=== PATIENT | female | born 1975 | race Asian ===

== ENCOUNTER 2019-02-09 11:03 | Emergency (ER) | payer OTHER ==
[2019-02-09 11:28] VITALS: BMI 24.0
--- NOTE | 2019-02-09 11:56 | PDOC ---
History of Present Illness - General Chief Complaint: Head/Neck problem Stated Complaint: NUMNESS AND TINGLING ON THE RT SIDE OF THE FACE Time Seen by Provider: 02/09/19 11:53 History Source: Patient Exam Limitations: No Limitations - History of Present Illness Initial Comments: 02/09/19 11:56 43yo woman with pmh htn presenting with crawling sensation of right mid / upper face since this morning. Pt reports she felt the sensation of something "crawling under [her] skin" on her cheek this morning. Sensation comes and goes , was not present at initial interview then came lasting several minutes. Started primarily in the right cheek but extended to behind right ear / forehead and top of head. Denies any prior similar symptoms. Denies any other symptoms (no pain, weakness, speech changes, confusion, etc.) Pt had "pinching" chest pain about 1 year ago and was prescribed PRN metoprolol which she hasn't required in several months - does report having "skipped beats" during a recent stress test. Denies palpitations, chest pain / discomfort, SOB, nausea, vomiting , or recent illnesses. KNDA Meds per chart NIH Stroke Scale - Last Known Well Date/Time & Onset Date Last Known Well: 02/09/19 Time Last Known Well: 09:45 - Initial Evaluation Level of consciousness: Alert Ask patient the month and their age: Answers both correctly Ask patient to open & close eyes; make fist and let go: Obeys both correctly Best gaze (horizontal eye movement): Normal Visual field testing: No visual field loss Facial paresis (Show teeth/raise eyebrows/close eyes tight): Normal symmetrical movement Motor Function: Left Arm: Normal Motor Function: Right Arm: Normal (extends arm 90 (or 45) degrees for 10 seconds without drift Motor Function: Left Leg: Normal (extends leg 30 degrees for 5 seconds without drift) Motor Function: Right Leg: Normal (extends leg 30 degrees for 5 seconds without drift) Limb Ataxia: No ataxia Sensory(Use pinprick test arms,legs,trunk,face/side to side): Normal Best language (Describe picture, name items, read sentences): No Aphasia Dysarthria (read several words): Normal articulation Extinction and Inattention: No abnormality - Total Score NIH Stroke Scale Score: 0 Past History - Travel Traveled outside of the country in the last 30 days: No Close contact w/someone who was outside of country & ill: No - Past Medical History Allergies/Adverse Reactions: Allergies Allergy/AdvReac Type Severity Reaction Status Date / Time No Known Allergies Allergy Verified 02/09/19 11:29 Home Medications: Ambulatory Orders NK [No Known Home Medication] 02/09/19 Anemia: Yes COPD: No HTN: Yes - Suicide/Smoking/Psychosocial Hx Smoking History: Never smoked Hx Alcohol Use: No Drug/Substance Use Hx: No Review of Systems - Review of Systems Able to Perform ROS?: Yes Is the patient limited Bengali proficient: No Constitutional: No: Chills, Diaphoresis, Fever, Weakness HEENTM: Yes: See HPI. No: Eye Pain, Tearing, Recent change in vision, Double Vision, Ear Discharge, Nose Pain, Hearing Loss, Throat Pain, Throat Swelling, Mouth Pain, Difficulty Swallowing Respiratory: No: Cough, Shortness of Breath, Wheezing Cardiac (ROS): No: Chest Pain, Irregular Heart Rate, Palpitations, Syncope, Chest Tightness ABD/GI: No: Abdominal Distended, Constipated, Diarrhea, Nausea, Vomiting : No: Burning, Dysuria, Discharge, Frequency Musculoskeletal: No: Back Pain, Muscle Weakness Integumentary: No: Bruising, Change in Hair/Nails, Pruritus, Rash Neurological: Yes: See HPI, Paresthesia. No: Headache, Numbness, Tingling, Weakness, Unsteady Gait All Other Systems: Reviewed and Negative *Physical Exam - Vital Signs Last Vital Signs Temp Pulse Resp BP Pulse Ox 98.3 F 63 16 147/83 100 02/09/19 11:26 02/09/19 11:26 02/09/19 11:02/09/19 11:02/09/19 11:26 - Physical Exam Comments: 02/09/19 12:54 Mildly hypertensive, AF, otherwise HDS Gen: WDWN woman, appears stated age, no acute distress HEENT: MMM, EOMI, TM normal - canal w/o lesions, normal morphologies, atraumatic , no facial pain, no rash, no erythema, no sinus tenderness CV: RRR, nl s1/s2, no murmurs / rubs / gallops Pulm: CTABL, normal WOB, speaking full sentences, no wheezes / rales / rhonchi Abd: soft, nontender, nondistended Ext: WWP, no clubbing cyanosis / edema Pulses: 2+ radial, PT Neuro: alert and oriented, MAEE, CN 2-12 intact, no numbness, NIHSS 0 ED Treatment Course - LABORATORY CBC & Chemistry Diagram: 02/09/19 12:50 02/09/19 12:50 Medical Decision Making - Medical Decision Making 02/09/19 12:58 43yo woman with PMH HTN presenting with intermittent "crawling" facial sensation for 2 hours. Concerning for r/o CVA/TIA, patient immediately taken to CT, negative head CT at 12:05, NIHSS zero at 12:10. Pt with trigeminal V2 distribution symptoms, reproducible with tapping on the trigeminal nerve. Concerning for some sort of compression vs less likely infection vs dental etiology. -NCHCT - negative on my review -CBC, CMP, PT/INR -EKG, Cardiac Profile, Cardiac monitoring -UA, Urine Preg 02/09/19 13:32 -CBC normal without leukocytosis or anemia -PT/INR within normal limits -UA with blood, pt on menstrual period, preg negative -Troponin pending -CMP pending -NCHCT official read pending 02/09/19 13:35 -CMP without electrolyte abnormalities, LFTs wnl -Troponin negative 02/09/19 14:32 -Head CT negative for acute intracranial process -ABCD2 score low risk, pt for discharge Dispo: home with neuro outpatient followup *DC/Admit/Observation/Transfer Diagnosis at time of Disposition: Trigeminal anesthesia - Discharge Dispostion Disposition: HOME Condition at time of disposition: Stable Decision to Admit order: No - Referrals Referrals: Ki Patel MD [Staff Physician] - - Patient Instructions Additional Instructions: You were seen and evaluated in the ED for an abnormal facial sensation. Please take anti-inflammatory medications (ibuprofen) as directed on bottle for symptoms. You have been given a referral for outpatient neurology followup. Please call them to arrange an appointment with in the next week. If you experience any new or concerning symptoms including but not limited to: new weakness, changes in speech, new numbness or tingling - please return to the nearest emergency department. - Post Discharge Activity
[2019-02-09] MEDS ORDERED: SODIUM CHLORIDE 1,000 ML IV SCH (12:30)
[2019-02-09 13:07] LABS: BASO % 0.9 % (0-2.0); EOS % 0.8 % (0-4.5); HEMATOCRIT 36.8 % (32.4-45.2); HEMOGLOBIN 12.4 GM/dL (10.7-15.3); LYMPH % 33.5 % (8-40); MCH 31.5 pg (25.7-33.7); MCHC 33.7 g/dl (32.0-36.0); MEAN CELL VOLUME 93.5 fl (80-96); MEAN PLT VOLUME 7.1 fl (7.5-11.1); MONO % 3.9 % (3.8-10.2); NEUT % 60.9 % (42.8-82.8); PLATELET COUNT 293 K/MM3 (134-434); RBC 3.93 M/mm3 (3.60-5.2); RDW 13.4 % (11.6-15.6); WHITE BLOOD COUNT 6.7 K/mm3 (4.0-10.0)
[2019-02-09 13:09] LABS: HYALINE CASTS 1 /lpf (0-8); PH,URINE 5.5 (5.0-8.0); URINE APPEARANCE CLEAR; URINE BILIRUBIN NEGATIVE (NEGATIVE); URINE COLOR YELLOW; URINE GLUCOSE (UA) NEGATIVE (NEGATIVE); URINE KETONE NEGATIVE (NEGATIVE); URINE LEUK ESTERASE NEGATIVE (NEGATIVE); URINE NITRITE NEGATIVE (NEGATIVE); URINE PROTEIN NEGATIVE (NEGATIVE); URINE RBC 1 /hpf (0-4); URINE UROBILINOGEN 0.2 mg/dL (0.2-1.0); URINE WBC 1 /hpf (0-5)
[2019-02-09 13:19] LABS: INR 1.04 (0.83-1.09); PROTHROMBIN TIME (PATIENT) 12.3 SEC (9.7-13.0)
[2019-02-09 13:33] LABS: BILIRUBIN,TOTAL 0.4 mg/dL (0.2-1); BLOOD UREA NITROGEN 17.3 mg/dL (7-18); CALCIUM 9.2 mg/dL (8.5-10.1); CREATININE 0.7 mg/dL (0.55-1.3); TOT PROT 7.8 g/dl (6.4-8.2)
[2019-02-09] MEDS ORDERED: ACETAMINOPHEN 1000 MG/100 ML VIAL (NON FORMULARY) IVPB ONE (13:39)
[2019-02-09] MEDS ORDERED: ACETAMINOPHEN INJECTION 100 ML IVPB ONE (13:44)
--- NOTE | 2019-02-09 15:04 | PDOC ---
Documentation entered by Dave Ruiz SCRIBE, acting as scribe for Rodo Knight MD. Rodo Knight MD: This documentation has been prepared by the Jsoeph meyer Xhesika, SCRIBE, under my direction and personally reviewed by me in its entirety. I confirm that the documentation accurately reflects all work, treatment, procedures, and medical decision making performed by me. Attending Attestation - Resident Resident Name: Woodrow Menendez - ED Attending Attestation I have performed the following: I have examined & evaluated the patient, The case was reviewed & discussed with the resident, I agree w/resident's findings & plan, Exceptions are as noted - HPI HPI: 02/09/19 14:28 The patient is a 43 year old female with a PMH of HTN who presents to the ED with intermittent R mid/ upper face tingling sensation radiating to her R ear and top of her head since 9:45AM. Patient states she endorses associated neck pain. Patient denies any arm or leg tingling/ numbness. Patient denies weakness , speech changes, or confusion. The patient denies chest pain, shortness of breath, headache and dizziness. Denies fever, chills, cough, nausea, vomiting, diarrhea and constipation. Denies dysuria, frequency, urgency and hematuria. Allergies:, NKDA Social Hx: Denies current smoking, drinking, or other substance usage. - Physicial Exam PE: 02/09/19 14:29 Vitals: Triage Vital signs reviewed General Appearance: no acute distress, well nourished well developed, Head: Atraumatic, normocephalic Eyes: Pupils equal reactive round, extraocular movement intact Ears: TM's normal bilaterally; Throat: Posterior oropharynx without erythema, mucous membranes moist, Neck: Supple;No Nuchal rigidity Chest Wall: Nontender Cardiac: Regular rate and rhythm, no murmurs, no rubs, no gallops, Lungs: Clear to auscultation bilateral, good air movement bilaterally, Abdomen: Soft, nondistended, normal bowel sounds, nontender to palpation Extremities: Full range of motion to all extremities, no cyanosis, clubbing, or edema Skin: Warm and dry, no rashes or lesions, no petechiae Neuro: AOX3; Cranial Nerves 2-12 grossly c intact, Strength intact to all extremities, Sensation intact to all extremities, gait normal Psych: normal mood, normal affect - Medical Decision Making 02/09/19 15:05 No weakness no numbness or tingling sensation over the V2 distribution of the trigeminal nerve on the right side of the patient's face. No ear involvement no tooth involvement otherwise nonfocal neurologic examination and otherwise healthy 43-year-old Likely irritation of the trigeminal nerve. Provided patient with neurology follow-up patient will return to ED for any severe worsening symptoms or for any concerns. Find his, need for follow-up and strict return instructions discussed with patient.
[2019-02-09 15:17] VITALS: BP 136/78; PULSE 82; TEMP 98.5
--- NOTE | 2019-02-10 11:17 | EKG ---
Test Reason : Blood Pressure : / mmHG Vent. Rate : 058 BPM Atrial Rate : 058 BPM P-R Int : 126 ms QRS Dur : 092 ms QT Int : 420 ms P-R-T Axes : 065 062 065 degrees QTc Int : 412 ms SINUS BRADYCARDIA OTHERWISE NORMAL ECG NO PREVIOUS ECGS AVAILABLE Confirmed by Deacon Stockton MD ([id number]) on 02/10/2019 11:17:27 AM Referred By: Confirmed By:Deacon Stockton MD
== END 2019-02-09 15:17 | disposition home or self-care (01) ==
LOC: JER 11:03
PROC: 3E033NZ Introduction of Analgesics, Hypnotics, Sedatives into Peripheral Vein, Percutaneous Approach (ICD-10-PCS; principal; 2019-02-09)
PROC: 3E0337Z Introduction of Electrolytic and Water Balance Substance into Peripheral Vein, Percutaneous Approach (ICD-10-PCS; 2019-02-09)
DX: G50.8 Other disorders of trigeminal nerve (principal); R20.0 Anesthesia of skin
CPT/HCPCS: 36415; 70450-TC; 80053; 81003; 82550; 84484; 85025; 85610; 93005; 93010; 96374; 99283-25; J0131; J7030

== ENCOUNTER 2019-05-11 15:31 | Emergency (ER) | payer OTHER ==
[2019-05-11 15:41] VITALS: BP 108/63; PULSE 86; TEMP 98.2; BMI 24.4
--- NOTE | 2019-05-11 15:42 | PDOC ---
Rapid Medical Evaluation Time Seen by Provider: 05/11/19 15:39 Medical Evaluation: Allergies Allergy/AdvReac Type Severity Reaction Status Date / Time No Known Allergies Allergy Verified 02/09/19 11:29 05/11/19 15:39 Pt presents for evluation after having a needle stick at work. She stuck her L thumb. She washed the area after the stick. Does not know the HIV status of the source patient Exam: NAD, prick to the L thumb pad Orders: Exposure labs Pt to proceed to the ER for further evaluation Discharge Disposition - Diagnosis Needle stick injury - Referrals - Patient Instructions - Post Discharge Activity
--- NOTE | 2019-05-11 18:06 | PDOC ---
Post Exposure HPI - General Chief Complaint: Blood/Body Fluid Exposure [facility]JR Stated Complaint: NEEDLE PRICK IN THUMB Time Seen by Provider: 05/11/19 15:39 History Source: Patient Exam Limitations: No Limitations - History of Present Illness Initial Comments: 05/11/19 18:05 43 year old female with medical history of HTN, childhood asthma and x 4 presents for needlestick. 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 Patient reports tetanus and hepatitis b vaccines are up to date but would like to have hiv testing and pep. 05/11/19 18:31 Timing: just prior to arrival Exposed Location: Left: Hand(s) Assessing Significant Risk PEP: Yes Blood, Yes Potentially Infectious Fluid Past History - Travel Traveled outside of the country in the last 30 days: No Close contact w/someone who was outside of country & ill: No - Past Medical History Allergies/Adverse Reactions: Allergies Allergy/AdvReac Type Severity Reaction Status Date / Time No Known Allergies Allergy Verified 02/09/19 11:29 Home Medications: Ambulatory Orders Olmesartan/Amlodipin/Hcthiazid [[id number] [id number] mg] 1 each PO DAILY 05/11/19 Anemia: Yes COPD: No HTN: Yes - Immunization History Immunization Up to Date: Yes - Psycho Social/Smoking Cessation Hx Smoking History: Never smoked Information on smoking cessation initiated: No Hx Alcohol Use: No Drug/Substance Use Hx: No General Medical PMHX - Other General PMHX Arthritis: No Glaucoma: No NH: No Review of Systems - Review of Systems Able to Perform ROS?: Yes Is the patient limited Montenegrin proficient: No Constitutional: No: Chills, Fever HEENTM: No: Nose Congestion, Throat Pain, Throat Swelling, Mouth Swelling Respiratory: No: Shortness of Breath, Wheezing Cardiac (ROS): No: Chest Pain, Lightheadedness, Palpitations ABD/GI: No: Poor Appetite, Poor Fluid Intake, Vomiting : No: Dysuria, Hematuria, Incontinence Integumentary: Yes: Other (needle stick to left thumb) Neurological: No: Numbness, Paresthesia *Physical Exam - Vital Signs Last Vital Signs Temp Pulse Resp BP Pulse Ox 98.2 F 86 20 108/63 98 05/11/19 15:38 05/11/19 15:38 05/11/19 15:38 05/11/19 15:38 05/11/19 15:38 - Physical Exam General Appearance: Yes: Nourished, Appropriately Dressed HEENT: positive: TMs Normal, Pharynx Normal Neck: positive: Supple. negative: Lymphadenopathy (R) Respiratory/Chest: positive: Lungs Clear Cardiovascular: positive: Regular Rhythm, Regular Rate Extremity: positive: Normal Capillary Refill Integumentary: positive: Other (needle stick to left thumb) Neurologic: positive: Fully Oriented, Alert Post Exposure - ED Protocol - Exposure Treatment Washing/Decontamination: Soap/Water Source Patient HIV Status:: Unknown Is PEP indicated?: Yes Prophylaxis for HIV discussed?: Yes Prophylaxis given?: Yes Drug(s) Information Sheets given:: Yes Baseline bloods drawn prophylaxis:(use *Exposure-Hosp Emp): Yes - Referrals Other Post Exposure pt. referral to PCP: Yes Medical Decision Making - Medical Decision Making 05/11/19 18:34 43 year old female with medical history of HTN, childhood asthma and x 4 presents for needlestick. 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 Patient reports tetanus and hepatitis b vaccines are up to date but would like to have hiv testing and pep. Blood exposure labs drawn pep given tetanus up to date Discharge - Discharge Information Problems reviewed: Yes Clinical Impression/Diagnosis: Needle stick injury Condition: Good Disposition: HOME - Admission No - Follow up/Referral Referrals: Aylin Galeas MD [Primary Care Provider] - (call for follow up appointment ) - Patient Discharge Instructions Patient Printed Discharge Instructions: How to Handle Body Fluid Exposure -- Healthcare Worker - Post Discharge Activity Work/Back to School Note: Back to Work
[2019-05-11] MEDS ORDERED: HIV POST EXPOSURE PROPHYLAXIS KIT NR ONE (18:35)
[2019-05-11] MEDS ORDERED: HIV POST EXPOSURE PROPHYLAXIS KIT PO ONE (18:46)
[2019-05-11 19:01] LABS: BASO % 1.1 % (0-2.0); EOS % 1.7 % (0-4.5); HEMATOCRIT 38.3 % (32.4-45.2); HEMOGLOBIN 12.8 GM/dL (10.7-15.3); LYMPH % 36.6 % (8-40); MCH 31.6 pg (25.7-33.7); MCHC 33.4 g/dl (32.0-36.0); MEAN CELL VOLUME 94.5 fl (80-96); MONO % 6.9 % (3.8-10.2); NEUT % 53.7 % (42.8-82.8); PLATELET COUNT 337 K/MM3 (134-434); RBC 4.06 M/mm3 (3.60-5.2); RDW 12.9 % (11.6-15.6); WHITE BLOOD COUNT 6.9 K/mm3 (4.0-10.0)
[2019-05-11 19:34] LABS: ALBUMIN 4.2 g/dl (3.4-5.0); BILIRUBIN,TOTAL 0.5 mg/dL (0.2-1); BLOOD UREA NITROGEN 17.3 mg/dL (7-18); CALCIUM 9.3 mg/dL (8.5-10.1); CREATININE 0.8 mg/dL (0.55-1.3); POTASSIUM 3.9 mmol/L (3.5-5.1); TOT PROT 8.2 g/dl (6.4-8.2)
== END 2019-05-11 19:28 | disposition home or self-care (01) ==
LOC: JERFT 15:31
DX: Z77.21 Contact with and (suspected) exposure to potentially hazardous body fluids (principal); S61.032A Puncture wound without foreign body of left thumb without damage to nail, initial encounter; W46.1XXA Contact with contaminated hypodermic needle, initial encounter; Y93.F9 Activity, other caregiving; Y92.89 Other specified places as the place of occurrence of the external cause; Y99.0 Civilian activity done for income or pay; I10 Essential (primary) hypertension; D64.9 Anemia, unspecified; J45.909 Unspecified asthma, uncomplicated
CPT/HCPCS: 36415; 80053; 85025; 86317; 86704; 86706; 86803; 87340; 87389; 99282-25

== ENCOUNTER 2021-02-07 14:20 | Emergency (ER) | payer BC, SELFPAY ==
[2021-02-07 14:32] VITALS: BP 133/82; PULSE 72; TEMP 98; BMI 25.7
[2021-02-07] MEDS ORDERED: IBUPROFEN 600 MG TABLET (FP) PO ONE ×2 (15:15→15:18)
== END 2021-02-07 15:38 | disposition home or self-care (01) ==
LOC: JERFT 14:20
DX: M54.42 Lumbago with sciatica, left side (principal); W10.8XXA Fall (on) (from) other stairs and steps, initial encounter
CPT/HCPCS: 72100-TC-FY; 99283-25

== ENCOUNTER 2022-03-05 16:57 | Emergency (ER) | payer BC ==
[2022-03-05 17:13] VITALS: BP 144/89; PULSE 76; RESP 18; TEMP 98.4; BMI 25.7
[2022-03-05 17:54] LABS: BASO % 1.1 % (0-2.0); EOS % 2.6 % (0-4.5); HEMATOCRIT 39.5 % (32.4-45.2); HEMOGLOBIN 13.4 GM/dL (10.7-15.3); LYMPH % 37.2 % (8-40); MCH 31.4 pg (25.7-33.7); MCHC 33.8 g/dl (32.0-36.0); MEAN CELL VOLUME 92.9 fl (80-96); MEAN PLT VOLUME 6.4 fl (7.5-11.1); NEUT % 54.1 % (42.8-82.8); PLATELET COUNT 339 10^3/uL (134-434); RBC 4.25 M/mm3 (3.60-5.2); RDW 13.4 % (11.6-15.6); WHITE BLOOD COUNT 8.7 K/mm3 (4.0-10.0)
[2022-03-05 18:20] LABS: CALCIUM 9.2 mg/dL (8.5-10.1)
[2022-03-05 18:21] LABS: ALBUMIN 3.9 g/dl (3.4-5.0); BLOOD UREA NITROGEN 9.5 mg/dL (7-18)
[2022-03-05 18:22] LABS: CREATININE 0.7 mg/dL (0.55-1.3)
[2022-03-05 18:24] LABS: BILIRUBIN,TOTAL 0.8 mg/dL (0.2-1); TOT PROT 8.2 g/dl (6.4-8.2)
[2022-03-05] MEDS ORDERED: SODIUM CHLORIDE 0.9% 500 ML INFUS.BAG IV ONE (18:37)
[2022-03-05] MEDS ORDERED: KETOROLAC TROMETHAMINE 30 MG/1 ML VIAL IVPUSH ONE (18:37)
[2022-03-05] MEDS ORDERED: ACETAMINOPHEN 1000 MG/100 ML BAG IVPB ONE (18:37)
[2022-03-05] MEDS ORDERED: KETOROLAC TROMETHAMINE 30 MG/1 ML VIAL ONE (18:40)
[2022-03-05] MEDS ORDERED: ACETAMINOPHEN INJECTION 100 ML IVPB ONE (18:40)
[2022-03-05 19:25] LABS: EPI CELLS 9 /uL (0-25.1); HYALINE CASTS 0 /uL (0-3.1); URINE APPEARANCE CLEAR; URINE BACTERIA 32 /uL (0-1359); URINE BILIRUBIN NEGATIVE (NEGATIVE); URINE COLOR YELLOW; URINE GLUCOSE (UA) NEGATIVE (NEGATIVE); URINE KETONE NEGATIVE (NEGATIVE); URINE LEUK ESTERASE TRACE (NEGATIVE); URINE NITRITE NEGATIVE (NEGATIVE); URINE PROTEIN NEGATIVE (NEGATIVE); URINE RBC 6 /uL (0-23.9); URINE UROBILINOGEN 0.2 mg/dL (0.2-1.0); URINE WBC 11 /uL (0-25.8)
== END 2022-03-05 22:10 | disposition home or self-care (01) ==
LOC: JER 16:57
PROC: 3E0333Z Introduction of Anti-inflammatory into Peripheral Vein, Percutaneous Approach (ICD-10-PCS; principal; 2022-03-05)
PROC: 3E0333Z Introduction of Anti-inflammatory into Peripheral Vein, Percutaneous Approach (ICD-10-PCS; 2022-03-05)
DX: R10.11 Right upper quadrant pain (principal)
CPT/HCPCS: 36415; 74176-TC; 76705-TC; 76775-TC; 80053; 81003; 83690; 84703; 85025; 87086; 99285-25

== ENCOUNTER 2023-06-18 08:32 | Emergency (ER) | payer OTHER ==
[2023-06-18 08:42] VITALS: BP 134/82; PULSE 84; RESP 18; TEMP 98.1; BMI 27.5
[2023-06-18] MEDS ORDERED: KETOROLAC TROMETHAMINE 15 MG/ML VIAL IVPUSH ONE (11:14)
[2023-06-18] MEDS ORDERED: LIDOCAINE 5% TOPICAL PATCH TP ONE (11:15)
[2023-06-18] MEDS ORDERED: KETOROLAC TROMETHAMINE 15 MG/ML VIAL ONE (11:20)
[2023-06-18] MEDS ORDERED: LIDOCAINE 4% PATCH TP ONE (11:22)
[2023-06-18 12:07] LABS: BASO % 1.2 % (0-2.0); EOS % 1.7 % (0-4.5); HEMATOCRIT 41.9 % (32.4-45.2); LYMPH % 33.3 % (8-40); MCH 31.3 pg (25.7-33.7); MCHC 33.4 g/dl (32.0-36.0); MEAN CELL VOLUME 93.7 fl (80-96); MEAN PLT VOLUME 6.8 fl (7.5-11.1); MONO % 5.4 % (3.8-10.2); NEUT % 58.4 % (42.8-82.8); PLATELET COUNT 395 10^3/uL (134-434); RBC 4.48 M/mm3 (3.60-5.2); RDW 13.3 % (11.6-15.6); WHITE BLOOD COUNT 9.3 K/mm3 (4.0-10.0)
[2023-06-18 12:22] LABS: POTASSIUM 4.1 mmol/L (3.5-5.1)
[2023-06-18 12:25] LABS: ALBUMIN 3.8 g/dl (3.4-5.0); BLOOD UREA NITROGEN 13.2 mg/dL (7-18); CALCIUM 9.3 mg/dL (8.5-10.1)
[2023-06-18 12:29] LABS: CREATININE 0.7 mg/dL (0.55-1.3)
[2023-06-18 12:31] LABS: BILIRUBIN,TOTAL 0.4 mg/dL (0.2-1); TOT PROT 7.9 g/dl (6.4-8.2)
[2023-06-18] MEDS ORDERED: LIDOCAINE PATCH REMOVAL MC SCH (22:00)
== END 2023-06-18 14:27 | disposition home or self-care (01) ==
LOC: JER 08:32
PROC: 3E0333Z Introduction of Anti-inflammatory into Peripheral Vein, Percutaneous Approach (ICD-10-PCS; principal; 2023-06-18)
DX: M54.12 Radiculopathy, cervical region (principal); M54.2 Cervicalgia; M25.512 Pain in left shoulder; M62.89 Other specified disorders of muscle; R20.2 Paresthesia of skin
CPT/HCPCS: 36415; 72141-TC; 80053; 85025; 99284-25